=== PATIENT | male | born 1990 | race Hispanic/Latino ===

== ENCOUNTER 2022-05-09 15:42 | Emergency (ER) | payer SELFPAY ==
[2022-05-09 16:13] LABS: #Eosinphils 0.1 thou/uL (0.0-0.7); #Lymphocytes 2.8 thou/uL (1.20-3.40); #Monocytes 1.5 thou/uL (0.11-0.59); #Neutrophils 10.3 thou/uL (1.40-6.50); %Basophils 0.2 % (0.0-1.0); %Eosinophils 0.6 % (0.0-10.0); %Monocytes 10.4 % (0.0-10.0); %Neutrophils 69.8 % (42.0-75.0); Hemoglobin 14.4 g/dL (14.0-18.0); Mean Corpuscular HGB CONC 33.7 g/dL (32.0-36.0); Mean Corpuscular Hemoglobin 30.9 pg (27.0-31.0); Mean Corpuscular Volume 91.6 fL (78.0-98.0); Mean Platelet Volume 7.3 fL (7.4-10.4); Platelet Count 296 thou/uL (130-400); RBC Distribution Width 13.6 % (11.5-14.5); Red Blood Cell (RBC) Count 4.67 mill/uL (4.70-6.10); White Blood Cell (WBC) Count 14.7 thou/uL (4.8-10.8)
[2022-05-09 16:34] LABS: ALT (SGPT) 45 U/L (8-55); AST (SGOT) 24 U/L (5-34); Albumin 4.4 g/dL (3.5-5.0); Alkaline Phosphatase 72 U/L (40-110); Anion Gap 12 mmol/L (10-20); BUN (Urea Nitrogen) 13 mg/dL (8.9-20.6); Bilirubin, Total 0.5 mg/dL (0.2-1.2); Calc. Creatinine Clearance 0 mL/min (70-130); Carbon Dioxide 27 mmol/L (22-29); Chloride 104 mmol/L (98-107); Estimated GFR 83; Globulin 3.2 g/dL (2.4-3.5); Glucose 102 mg/dL (70-105); Potassium 3.9 mmol/L (3.5-5.1); Protein, Total 7.6 g/dL (6.0-8.3); Sodium 139 mmol/L (136-145)
[2022-05-09 17:57] LABS: PTT 25.7 sec (22.9-36.1); Prothrombin Time 13.5 sec (12.0-14.7)
[2022-05-09] MEDS ORDERED: Lidocaine 1% PF 5 ML VIAL ONE (18:03)
[2022-05-09] MEDS ORDERED: Ketorolac Tromethamine 30 MG/ML VIAL ONE (18:28)
[2022-05-09] MEDS ORDERED: Acetaminophen 500 MG TAB ONE (19:39)
[2022-05-09 20:09] LABS: Bilirubin Negative (Negative); Blood, Urine Negative (Negative); Clarity Clear (Clear); Glucose, Urine (Dipstick) Normal (Negative); Ketone, Urine Negative (Negative); Leukocyte Negative Leu/uL (Negative); Nitrite Negative (Negative); Protein, Urine (Dipstick) Negative (Neg-Trace); Specific Gravity, Urine 1.026 (1.002-1.036); Urobilinogen Normal mg/dL (Less than 2); pH, Urine 6.5 (5.0-9.0)
== END 2022-05-09 19:40 | disposition home or self-care (01) ==
LOC: ERS 15:42
DX: L02.415 Cutaneous abscess of right lower limb (principal); I10 Essential (primary) hypertension; F17.210 Nicotine dependence, cigarettes, uncomplicated; Z79.899 Other long term (current) drug therapy
CPT/HCPCS: 10060; 36415; 80053; 81003; 83605; 85025; 85610; 85730; 87040; 93005; 96361; 96374; J1885